=== PATIENT | male | born 1995 | race Caucasian/White ===

== ENCOUNTER 2019-08-20 07:34 | Emergency (ER) | payer OTHER, SELFPAY ==
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
[2019-08-20 07:38] VITALS: BP 137/91; PULSE 70; RESP 17; TEMP 36.3; O2SAT 98
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
[2019-08-20] MEDS: KETOROLAC 30 MG/ML VIAL (*BKC) IV PUSH (09:14)
[2019-08-20 10:17] VITALS: BP 156/67; PULSE 56; RESP 17; O2SAT 97
== END 2019-08-20 10:19 | disposition home or self-care (01) ==
PROVIDERS: Emergency Provider Family Medicine
DX: G44.209 Tension-type headache, unspecified, not intractable (principal); S16.1XXA Strain of muscle, fascia and tendon at neck level, initial encounter; F17.200 Nicotine dependence, unspecified, uncomplicated; V49.9XXA Car occupant (driver) (passenger) injured in unspecified traffic accident, initial encounter
CPT/HCPCS: 70450; 96374; 99284; J1885

== ENCOUNTER 2019-09-11 14:59 | Emergency (ER) | payer OTHER, SELFPAY ==
[2019-09-11 15:12] VITALS: BP 142/93; PULSE 102; RESP 18; TEMP 37.9; O2SAT 98
--- NOTE | 2019-09-11 16:03 | ED.URI ---
HPI - URI/Sore Throat General Chief Complaint: Upper Respiratory Infection Stated Complaint: flu like symptoms Time Seen by Provider: 09/11/19 15:41 Source: patient Mode of arrival: ambulatory Limitations: no limitations History of Present Illness HPI Narrative: This is a 24 year old male that presents to the ER for cold symptoms since yesterday. Reports fever, myalgias, cough, congestion, and sore throat. Denies chest pain. Related Data Allergies Allergy/AdvReac Type Severity Reaction Status Date / Time No Known Allergies Allergy Unknown Verified 09/11/19 15:31 Review of Systems Review of Systems: Narrative: CONSTITUTIONAL: Reports fever, chills ENT: Reports rhinorrhea, congestion, sore throat. Denies otalgia. CARDIOVASCULAR: Denies chest pain RESPIRATORY: Reports cough MUSCULOSKELETAL: Reports myalgia. All systems reviewed & are unremarkable except as noted in HPI and below PMFSH Past Medical History Medical History (Updated 09/11/19 @ 16:18 by Carmel Abbott PA-C) No significant past medical history Surgical History Surgical History (Updated 08/20/19 @ 08:31 by Oscar Hurtado) No significant past surgical history Family History Family History (Updated 09/19/11 @ 12:10 by DOCTOR UNKNOWN) Other Family history of cardiovascular disease Social History Social History (Updated 08/20/19 @ 08:31 by Oscar Hurtado) Smoking status: Current every day smoker Alcohol intake: never Gender identity (if verbalized by the patient): Male Exam Narrative: Exam Narrative: GENERAL: Well-appearing, well-nourished, and in no acute distress. HEAD: Normocephalic, atraumatic. EYES: EOMI. ENT: Nares with rhinorrhea, no epistaxis. Mucous membranes moist. Oropharynx without tonsillar hypertrophy exudate or other lesions. Bilateral TMs pearly gonsales non-bulging NECK: Supple. No adenopathy or masses. CHEST: Clear to auscultation. No respiratory distress. No wheezes rales or rhonchi HEART: Regular rate and rhythm. No murmur heard. Normal peripheral pulses. EXTREMITIES: Normal range of motion. No edema. SKIN: Warm, dry, no rash. NEURO: No focal deficits. Alert and oriented x3. PSYCH: Normal mood and affect Course Vital Signs Vital signs: Vital Signs Temperature 100.2 F H 09/11/19 15:12 Pulse Rate 102 H 09/11/19 15:12 Respiratory Rate 18 09/11/19 15:12 Blood Pressure 142/93 H 09/11/19 15:12 Pulse Oximetry 98 09/11/19 15:12 Temperature 100.2 F H 09/11/19 15:12 Pulse Rate 102 H 09/11/19 15:12 Respiratory Rate 18 09/11/19 15:12 Blood Pressure 142/93 H 09/11/19 15:12 Pulse Oximetry 98 09/11/19 15:12 MDM - URI/Sore Throat MDM Narrative Medical decision making narrative: Patient presents the emergency department for cold symptoms since yesterday. Patient with mild fever of 100.2 on arrival. Patient was treated with ibuprofen. Patient also mildly tachycardic to 102. Otherwise vitals are normal. Lungs are clear on exam. Patient is influenza A positive. Patient is within treatment window and has young child at home, so he will be treated with Tamiflu. Patient was directed on other [id number] symptomatic care. He is to follow-up with primary care doctor. He was given warnings to return to the ER Lab Data Labs: Influenza A Screen Positive Reference Range: Negative Influenza B Screen Negative Reference Range: Negative Critical Care Time Critical Care Time Critical Care Time: No Discharge Plan Discharge Clinical Impression: Influenza A Patient Disposition: Home, Self-Care Condition: Stable Instructions: Influenza (ED) Additional Instructions: Return to the emergency department for worsening symptoms, or any other concerns Remain well-hydrated, get plenty of rest, no work or school for several days. Tamiflu as prescribed. Take Tylenol or Motrin [id number] for pain as needed. Flonase for nasal congestion
[2019-09-11] MEDS: IBUPROFEN 600 MG TABLET PO (16:52)
[2019-09-11] MEDS: OSELTAMIVIR PHOSPHATE 75 MG CAP PO (16:52)
== END 2019-09-11 17:01 | disposition home or self-care (01) ==
PROVIDERS: Emergency Provider Emergency Medicine
DX: J10.1 Influenza due to other identified influenza virus with other respiratory manifestations (principal); F17.200 Nicotine dependence, unspecified, uncomplicated
CPT/HCPCS: 87804; 99283; A9270

== ENCOUNTER 2020-08-02 15:09 | Emergency (ER) | payer SELFPAY ==
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
--- NOTE | ~2020-08-02 | XR_ITS ---
EXAMINATION: XR ankle RT min 3V DATE: 08/02/2020 15:40 INDICATION: Right ankle injury and pain. TECHNIQUE: 4 views of right ankle were obtained. COMPARISON: None. FINDINGS: Bone alignment is normal. No fracture. Joint spaces are well maintained. There is ankle sof t tissue swelling. IMPRESSION: 1. No fracture. Reviewed, dictated and finalized at location A. OP JAVA DEVELOPER IMPRESSION: 1. No fracture.
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
[2020-08-02 15:26] VITALS: BP 162/81; PULSE 83; RESP 19; TEMP 36.8; O2SAT 100
== END 2020-08-02 15:59 | disposition home or self-care (01) ==
PROVIDERS: Emergency Provider Nurse Practitioner Family
DX: S93.401A Sprain of unspecified ligament of right ankle, initial encounter (principal); V28.4XXA Motorcycle driver injured in noncollision transport accident in traffic accident, initial encounter; F17.200 Nicotine dependence, unspecified, uncomplicated
CPT/HCPCS: 73610; 73630; 99213; G0463

== ENCOUNTER 2020-11-02 13:59 | Emergency (ER) | payer MEDICAID, SELFPAY ==
[2020-11-02] VITALS (11 sets, daily range): BP systolic 108–141; BP diastolic 65–95; PULSE 54–76; RESP 14–19; TEMP 36.2–36.4; O2SAT 99–100
--- NOTE | ~2020-11-02 | XR_ITS ---
XR hand RT min 3V DATE: 11/02/2020 22:42 INDICATION: Postreduction examination TECHNIQUE: 2 sets of postreduction AP and lateral views COMPARISON: Pre-reduction/ right wrist and hand FINDINGS: There is improvement of the dorsal dislocation at the fourth and fifth carpal metacarpal marla ints on the second set. CT examination would provide more definitive assessment. IMPRESSION: Improved/diminished dorsal dislocation at fourth and fifth carpometacarpal joints Reviewed, dictated and finalized at location A. IMPRESSION: Improved/diminished dorsal dislocation at fourth and fifth carpomet acarpal joints
--- NOTE | ~2020-11-02 | XR_ITS ---
XR wrist RT min 3V DATE: 11/02/2020 18:53 INDICATION: Fall 2 days ago. Generalized right wrist pain TECHNIQUE: 4 views COMPARISON: 11/02/2020 right hand 08/21/2016 right hand FINDINGS: There is fracture and posterior dislocation at the bases of the fourth and fifth metacarpal bones. No other fracture or dislocation is evident. IMPRESSION: Fracture/dislocation at the fourth and fifth carpometacarpal joints Reviewed, dictated and finalized at location A.
--- NOTE | ~2020-11-02 | XR_ITS ---
EXAMINATION: XR hand RT min 3V DATE: 11/02/2020 14:24 INDICATION: Right hand injury and pain. TECHNIQUE: 4 views of right hand were obtained. COMPARISON: Right hand radiographs 08/21/2016 FINDINGS: There is a fracture of dorsal rim of distal hamate with posterior displacement of the dorsa l distal fracture fragment. There is posterior subluxation of fourth and fifth metacarpals with respe ct to the proximal fracture fragment of hamate. Other joint spaces are normal. IMPRESSION: 1. Fracture subluxation at the fourth and fifth carpometacarpal joints. Reviewed, dictated and finalized at location A.
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
--- NOTE | 2020-11-02 18:43 | ED.UPPEXIN ---
HPI - Extremity Injury (Upper) General Chief Complaint: Extremity Injury, Upper <Carmel Abbott PA-C - Last Filed: 11/02/20 22:56> Stated Complaint: rigfht hand injury <MARIELLA Cote Last Filed: 11/02/20 22:56> Time Seen by Provider: 11/02/20 18:36 <Carmel Abbott PA-C - Last Filed: 11/02/20 22:56> Source: patient <MARIELLA Cote Last Filed: 11/02/20 22:56> Mode of arrival: ambulatory <MARIELLA Cote Last Filed: 11/02/20 22:56> Limitations: no limitations <Carmel Abbott PA-C - Last Filed: 11/02/20 22:56> History of Present Illness HPI narrative: This is a 25-year-old male that presents to the emergency department for right hand injury sustained 2 days ago. Reports he was walking on the steps and slipped. Reports he fell down the last couple of steps. He caught himself with his right wrist. Reports pain and swelling in the right hand and wrist. Reports decreased range of motion in the fingers. Also reports tingling in his 3rd-5th fingers. Denies numbness. <Carmel Abbott PA-C - Last Filed: 11/02/20 22:56> Related Data Allergies/Adverse Reactions: Allergies Allergy/AdvReac Type Severity Reaction Status Date / Time No Known Allergies Allergy Unknown Verified 11/02/20 14:04 <MARIELLA Cote Last Filed: 11/02/20 22:56> Review of Systems Review of Systems: Narrative: CONSTITUTIONAL: Denies fever MUSCULOSKELETAL: Reports joint pain, and myalgia. NEUROLOGIC: Denies numbness <MARIELLA Cote Last Filed: 11/02/20 22:56> All systems reviewed & are unremarkable except as noted in HPI and below <MARIELLA Cote Last Filed: 11/02/20 22:56> [facility] Past Medical History Medical History: Medical History No significant past medical history <Carmel Abbott PA-C - Last Filed: 11/02/20 22:56> Surgical History Surgical History: Surgical History No significant past surgical history <Carmel Abbott PA-C - Last Filed: 11/02/20 22:56> Family History Family History: Family History Other Family history of cardiovascular disease <Carmel Abbott PA-C - Last Filed: 11/02/20 22:56> Social History Social History: Social History Smoking status: Current every day smoker Alcohol intake: never Gender identity (if verbalized by the patient): Male <Carmel Abbott PA-C - Last Filed: 11/02/20 22:56> Exam Narrative: Exam Narrative: GENERAL: Well-appearing, well-nourished, and in no acute distress. HEAD: Normocephalic, atraumatic. EYES: EOMI. CHEST: Clear to auscultation. No respiratory distress. No wheezes rales or rhonchi HEART: Regular rate and rhythm. No murmur heard. Normal peripheral pulses. EXTREMITIES: Normal range of motion, except decreased ROM in the right 4th and 5th fingers. Moderate edema at the base of the right 4th and 5th metacarpals, tender to palpation. Normal radial pulses SKIN: Warm, dry, no rash. NEURO: No focal deficits. Alert and oriented x3. PSYCH: Normal mood and affect <Carmel Abbott PA-C - Last Filed: 11/02/20 22:56> Course JAVA LEAD ENGINEER/PA Physician Supervision For this patient encounter, I reviewed the JAVA LEAD ENGINEER or PA documentation, treatment plan, and medical decision making; and I had [id number] time with this patient. <Neyda Bray MD - Last Filed: 11/03/20 00:31> Consultations Consultation #1: Spoke with Dr. Lozoya, documentation writer for orthopedics at [facility]. Recommends attempt at reduction, if unable to reduce would like patient transferred to the ER <Carmel Abbott PA-C - Last Filed: 11/02/20 22:56> Date: 11/02/20 <Carmel Abbott PA-C - Last Filed: 11/02/20 22:56> Time: 21:00 <Carmel Abbott PA-C - Last Filed: 11/02/20 22:56> Vital Signs V
[2020-11-02] MEDS: HYDROcodone/acetaminophen (*CRX) 5-325 MG TABLET 1 TAB PO (19:12)
[2020-11-02] MEDS: MORPHINE SULFATE (*CRX) 4 MG/ML INJ IV PUSH (20:27)
[2020-11-02] MEDS: ONDANSETRON INJ 4 MG/2 ML VIAL IV PUSH (20:27)
[2020-11-02] MEDS: fentaNYL CITRATE INJ (*CRX) 100 MCG/2 ML VIAL 50 MCG IV PUSH (21:32)
[2020-11-02] MEDS: PROPOFOL IV EMULSION 200 MG/20 ML VIAL 60 MG IV PUSH (22:15)
--- NOTE | 2020-11-02 22:38 | PC.NURSE ---
provider dosed 50 mcg of propofol at 2217 and 2219 ivp in left a/c pt mintored and vital within normal range
== END 2020-11-02 23:35 | disposition home or self-care (01) ==
PROVIDERS: Emergency Provider Emergency Medicine
DX: S62.394A Other fracture of fourth metacarpal bone, right hand, initial encounter for closed fracture (principal); S62.396A Other fracture of fifth metacarpal bone, right hand, initial encounter for closed fracture; W10.9XXA Fall (on) (from) unspecified stairs and steps, initial encounter
CPT/HCPCS: 26641; 26670; 73110; 73130; 96374; 96375; 99285; A9270; J2270; J2405; J2704; J3010; J7030